=== PATIENT | male | born 1990 | race Caucasian/White ===

== ENCOUNTER 2018-10-13 14:39 | Inpatient (IN) ==
[2018-10-13] MEDS ORDERED: SODIUM CHLORIDE 0.9% 1000ML 1,000 ML IV ONE ×3 (15:06→17:54)
[2018-10-13 15:32] LABS: Partial Thromboplastin Ratio 1.2; Partial Thromboplastin Time 32.5 Seconds (21.0-31.0); Prothrombin Time 9.9 Seconds (9.0-12.0)
[2018-10-13 15:35] LABS: Alanine Aminotransferase 26 U/L (12-78); Albumin Level 4.3 gm/dl (3.4-5.0); Alkaline Phosphatase 176 U/L (45-117); Aspartate Aminotransferase 11 U/L (15-37); BUN Creatinine Ratio 11.6 (10-20); Bilirubin,Total 0.5 mg/dl (0.2-1); Blood Urea Nitrogen 16 mg/dl (7-18); Chloride 100 mmol/L (98-107); Creatinine Clr Calc Pharmacy 77.3 ml/min; Est GFR (African American) 79.1; Est GFR (Non-African American) 68.3; Magnesium 2.6 mg/dl (1.8-2.4); NT Pro B Type Natriuretic Pept 96 pg/ml (0-450); Potassium 4.5 mmol/L (3.5-5.1); Sodium 134 mmol/L (136-145); Total Protein 8.7 gm/dl (6.4-8.2); Troponin I < 0.015 ng/ml (0-0.045)
--- NOTE | 2018-10-13 15:37 | XRay Report ---
XR chest 1V portable HISTORY: 27 years-old Male cough acute cough. COMPARISON: None available TECHNIQUE: Portable AP view of the chest FINDINGS: Cardiac mediastinal and hilar silhouettes are within normal limits. There is no pneumothorax, pleural effusion, focal airspace consolidation or overt pulmonary edema. Bones of the chest appear grossly i ntact. IMPRESSION: No acute process. The above report was generated using voice recognition software. It may contain grammatical, syntax o r spelling errors. Electronically signed by: Anton Joe M.D. 10/13/2018 3:36 PM
[2018-10-13] MEDS ORDERED: DKA GOAL RANGE 150-250 mg/dl ONE ×2 (15:40→19:11)
[2018-10-13] MEDS ORDERED: SEVERE STRESS LEVEL ONE (15:40)
[2018-10-13 15:43] LABS: Glucose 432 mg/dl (70-99)
[2018-10-13] MEDS ORDERED: INSULIN REGULAR 250 UNITS in SODIUM CHLORIDE 0.9% 247.5 ML IV SCH ×2 (15:45→19:11)
[2018-10-13 15:46] LABS: Base Excess VBG -28.5 mEq/L; Oxygen Saturation VBG 80.2 %; pH VBG 6.88 (7.36-7.41)
[2018-10-13 15:50] LABS: Hematocrit (blood only) 49.4 % (42-52); Hemoglobin 17.5 g/dL (14.0-18.0); Mean Corpuscular Hgb Conc 35.4 g/dL (32-36); Mean Corpuscular Volume 88.2 fL (80-100); Platelet Count 369 K/uL (130-400); RDW Coefficient of Variation 12.6 % (11.5-14.5); RDW Standard Deviation 40.3 fL (36.4-46.3); White Blood Count 20.93 K/uL (4.8-10.8)
[2018-10-13 15:52] LABS: Basophils # (auto) 0.07 K/uL (0-0.2); Basophils % (auto) 0.3 %; Echinocytes 1+; Eosinophils # (auto) 0.02 K/uL (0-0.5); Eosinophils % (auto) 0.1 %; Immature Granulocytes # (auto) 0.67 K/uL (0.00-0.02); Immature Granulocytes % (auto) 3.2 %; Lymphocytes # (auto) 2.34 K/uL (1.2-3.4); Lymphocytes % (auto) 11.2 %; Monocytes # (auto) 2.36 K/uL (0.11-0.59); Monocytes % (auto) 11.3 %; Neutrophils # (auto) 15.47 K/uL (1.4-6.5); Neutrophils % (auto) 73.9 %; Platelet Estimate Normal (Normal); Toxic Vacuolation 1+
[2018-10-13] MEDS ORDERED: PIPERACILLIN/TAZOBACTAM 4.5 GM/120 ML BAG IV ONE (15:59)
[2018-10-13] MEDS ORDERED: PIPERACILL/TAZOBAC CONSULT ACTIVE PRN (15:59)
--- NOTE | 2018-10-13 16:05 | Emergency Department Note ---
History of Present Illness General Chief Complaint: Shortness of Breath/Dyspnea Stated Complaint: SHORTNESS OF BREATH Source: patient Mode of arrival: ambulatory Limitations: no limitations History of Present Illness Provider Complaint: shortness of breath Onset (ago): day(s) (1) Severity: severe Consistency/Duration: + constant Maximum Pain Intensity: 7 Current Pain Intensity: 7 Relieved By: + nothing Exacerbated By: + nothing Context: + recent illness (cough/congestion since last ) Associated symptoms: + cough and + nausea/vomiting Treatment prior to arrival: none This 27-year-old male patient presents emergency department today, ambulatory, accompanied by female. He is complaining of "not feeling good". The patient states last evening he was vomiting. He states he developed shortness of breath with worsening symptoms with deep breathing yesterday. He states since last , 5 days ago, he has been experiencing cough and congestion. He denies any fever. He denies any abdominal pain, chest pain, wheezing, or sore throat. He denies any headache, dizziness, numbness, tingling, or urinary symptoms. Patient states up until yesterday with nausea vomiting his appetite has been normally. He states he has been feeling overly thirsty, but denies any polyphagia or urinary frequency. Patient denies any drug or marijuana use. He denies any coughing up blood, hematemesis, or bowel disturbances. Home Medications Home Medications Medication Instructions Recorded Confirmed Type No Known Home Medications 10/13/18 10/13/18 History Allergies Allergy/AdvReac Type Severity Reaction Status Date / Time No Known Allergies Allergy Verified 10/13/18 15:24 Past Med/Surg History Medical History No pertinent past medical history Family History Grandfather Diabetes Social History Preferred Language: Danish Communication Ability: Effective Railroad Repairer Required: No Beliefs That Will Affect Care: None Current Living Situation: Significant Other Current Living Situation Comment: with Bella Gross, s/o current occupational status: student current occupation: grad student at [employer] Other Information That Helps Us Care for You: No Feels Safe at Home: Yes Safety Concerns: Feels Safe At This Time Smoking Status: Never smoker Do You Dip or Chew Tobacco: No Hx Alcohol Use: No Hx Substance Use: No Review of Systems A total of 10 systems reviewed and were otherwise negative Physical Exam Vital Signs: Vital Signs - 24 hr 10/13/18 14:46 10/13/18 14:55 10/13/18 14:56 Temperature Source Oral Sepsis Recent Feve r Within 48 Hours Yes Sepsis New/Unexpla ined Change in Men nora Status No Sepsis Action Take n by Nursing No Action Required Pulse Rate 115 H Pulse Rate [Apical ] Pulse Rate from Sp O2 Sensor Respiratory Rate 20 Respiratory Effort / Characteristics Labored Non-Labored Sponta neous Respiratory Depth Deep Normal Respiratory Patter n Regular Blood Pressure 151/90 H Blood Pressure [Le ft Arm] Blood Pressure Nayla n 110 Blood Pressure Nayla n [Left Arm] Pulse Oximetry 100 Oxygen Delivery Me thod Room Air Room Air Room Air 10/13/18 15:17 10/13/18 15:31 10/13/18 15:43 Temperature Source Axillary Sepsis Recent Feve r Within 48 Hours Sepsis New/Unexpla ined Change in Men nora Status Sepsis Action Take n by Nursing Pulse Rate 115 H 116 H Pulse Rate [Apical ] 110 H Pulse Rate from Sp O2 Sensor 114 H 115 H Respiratory Rate 21 22 22 Respiratory Effort / Characteristics Respiratory Depth Respiratory Patter n Blood Pressure 164/97 H Blood Pressure [Le ft Arm] 170/97 H Blood Pressure Nayla n 119 Blood Pressure Nayla n [Left Arm] 121 Pulse Oximetry 100 100 100 Oxygen Delivery Me thod Room Air 10/13/18 16:00 10/13/18 16:30 10/13/18 16:31 Temperature Source Sepsis Recent Feve r Within 48 Hours Sepsis New/Unexpla ined Change in Men nora Status Sepsis Action Take n by Nursing Pulse Rate 116 H 119 H 117 H Pulse Rate [Apical ] Pulse Rate from Sp O2 Sensor 116 H 119 H 117 H Respiratory Rate 23 16 20 Respiratory Effort / Characteristics Respiratory Depth Respiratory Patter n Blood Pressure 157/100 H 177/93 H Blood Pressure [Le ft Arm] Blood Pressure Nayla n 119 121 Blood Pressure Nayla n [Left Arm] Pulse Oximetry 100 98 100 Oxygen Delivery Me thod 10/13/18 17:00 10/13/18 17:30 10/13/18 17:32 Temperature Source Sepsis Recent Feve r Within 48 Hours Sepsis New/Unexpla ined Change in Men nora Status Sepsis Action Take n by Nursing Pulse Rate 114 H 116 H Pulse Rate [Apical ] Pulse Rate from Sp O2 Sensor 115 H 116 H Respiratory Rate 22 21 Respiratory Effort / Characteristics Spontaneous Labore d Short of Breath Respiratory Depth Respiratory Patter n Kussmaul Tachypnea Blood Pressure 151/95 H 154/101 H Blood Pressure [Le ft Arm] Blood Pressure Nayla n 113 118 Blood Pressure Nayla n [Left Arm] Pulse Oximetry 100 100 Oxygen Delivery Me thod Room Air 10/13/18 18:03 10/13/18 18:30 Temperature Source Sepsis Recent Feve r Within 48 Hours Sepsis New/Unexpla ined Change in Men nora Status Sepsis Action Take n by Nursing Pulse Rate 120 H 120 H Pulse Rate [Apical ] Pulse Rate from Sp O2 Sensor 119 H 120 H Respiratory Rate 21 20 Respiratory Effort / Characteristics Respiratory Depth Respiratory Patter n Blood Pressure Blood Pressure [Le ft Arm] Blood Pressure Nayla n Blood Pressure Nayla n [Left Arm] Pulse Oximetry 100 100 Oxygen Delivery Me thod Physical Exam: VITALS: Vitals are noted on the nurse's note and reviewed by myself. Tachycardic and hypertensive. GENERAL: This is a 27-year-old white male, ill-appearing, tachypneic with obvious difficulty breathing, appearing uncomfortable, nondiaphoretic, well- developed well-nourished. SKIN: The skin was without rashes, erythema, edema, or bruising. There is no tenting of the skin. Capillary reflex less than 2 seconds. HEAD: Normocephalic atraumatic. EARS: External auditory canals clear, tympanic membranes pearly [place] without er ythema or effusion bilaterally. EYES: Pupils equal round and reactive to light and accommodation. Conjunctivae without injection, sclerae without icterus. Extraocular movements intact. NOSE: Patent, turbinates without inflammation or discharge. No sinus tenderness. MOUTH: Mucous membranes moist. Tonsils are not enlarged. Pharynx without erythema or exudate. Uvula midline. Airway patent. Tongue does not deviate. NECK: Supple without nuchal rigidity. No lymphadenopathy. No thyromegaly. Cervical spine is nontender. No JVD. HEART: Regular rate and rhythm without murmurs gallops or rubs. LUNGS: Clear to auscultation bilaterally without wheezes, rales or rhonchi. No dullness to percussion. + accessory muscle use. ABDOMEN: Positive bowel sounds x 4. Normal tympanic percussion. Soft, nontender, without masses or organomegaly. Frias sign negative. No guarding or rebound tenderness. MUSCULOSKELETAL: No muscle atrophy, erythema, or edema noted. Full range of motion without joint tenderness in all extremities. No tenderness to palpation. Normal gait. Strength 5/5 throughout. NEURO: Patient was alert and oriented to person place and time. Normal sensation to light and sharp touch. Deep tendon reflexes 2+ throughout. No focal neurological deficits. Course The patient was seen and evaluated as above. IV access obtained, labs drawn. Patient given 2 L IV fluids. Imaging performed and reviewed by myself and radiologist as above. Labs reviewed by myself. I consulted with the ED pharmacist. Insulin drip initiated. I discussed the findings with the patient at bedside. Discussed the case with the [facility] physician, Dr. Gray regarding admission. I discussed the case with my attending. Patient given Zosyn IV. Please see hospitalist dictation regarding ongoing management care of this patient. Administered Medications Insulin Human Regular 250 (units/ Sodium Chloride) 250 mls @ 9.7 mls/hr IV .Q24H JOAN; Protocol Stop: 11/12/18 15:44 Last Titration: 10/13/18 18:16 Dose: 9.7 units/hr, 9.7 mls/hr Documented by: [id number] Cosigned by: [id number] Titration: 10/13/18 17:15 Dose: 9.7 units/hr, 9.7 mls/hr Documented by: [id number] Cosigned by: [id number] Admin: 10/13/18 16:15 Dose: 6.9 units/hr, 6.9 mls/hr Documented by: [id number] Cosigned by: [id number] Discontinued Medications Sodium Chloride (Nss 1000ml) 1,000 mls @ 999 mls/hr IV .Q1H1M ONE Stop: 10/13/18 16:06 Last Infusion: 10/13/18 17:05 Dose: 0 mls/hr Documented by: [id number] Admin: 10/13/18 15:56 Dose: 999 mls/hr Documented by: [id number] Sodium Chloride (Nss 1000ml) 1,000 mls @ 999 mls/hr IV .Q1H1M ONE Stop: 10/13/18 16:24 Last Infusion: 10/13/18 17:05 Dose: 0 mls/hr Documented by: [id number] Admin: 10/13/18 15:56 Dose: 999 mls/hr Documented by: [id number] Piperacillin Sod/Tazobactam Sod (Zosyn) 4.5 gm in 120 mls @ 240 mls/hr IV NOW ONE Stop: 10/13/18 16:28 Last Infusion: 10/13/18 17:05 Dose: 0 mls/hr Documented by: [id number] Admin: 10/13/18 16:12 Dose: 240 mls/hr Documented by: [id number] Sodium Chloride (Nss 1000ml) 1,000 mls @ 999 mls/hr IV .Q1H1M ONE Stop: 10/13/18 18:54 Last Infusion: 10/13/18 18:56 Dose: 0 mls/hr Documented by: [id number] Admin: 10/13/18 17:55 Dose: 999 mls/hr Documented by: [id number] Miscellaneous (Insulin Protocol Dka Goal Range) 1 ea N/A ONE ONE Stop: 10/13/18 15:41 Last Admin: 10/13/18 16:32 Dose: Not Given Documented by: [id number] Miscellaneous (Insulin Protocol Severe Stress) 1 ea N/A ONE ONE Stop: 10/13/18 15:41 Last Admin: 10/13/18 16:32 Dose: Not Given Documented by: [id number] Medical Decision Making Differential Diagnosis + acute exacerbation of chronic obstructive airways disease, + congestive heart failure, + community acquired pneumonia, + asthma with exacerbation, + pulmonary embolism, + COPD, + bronchitis, + pneumothorax, + pneumonia, + pleural effusion, + CHF, + ACS and + aspiration DKA, metabolic abnormality, endocrine abnormality, musculoskeletal, infections, gastrointestinal, as well as others were entertained. Home Medications Current Medication List: was personally reviewed by me Laboratory Data Attestation: I reviewed the patient's lab results. Leukocytosis of 21,000. Coags normal. D-dimer elevated at 640. Potassium normal at 4.5. Lactic acid 3.5. Glucose 432. Creatinine elevated 1.41. Troponin negative. BNP negative. Lipase 100. Magnesium slightly elevated at 2.6. Anion gap elevated at 30. ABG pH 6.88. PCO2 23. Beta hydroxybutyric acid 112. Result diagrams: 10/13/18 15:01 10/13/18 15:01 Lab Results 10/13/18 10/13/18 10/13/18 Range/Units 15:01 15:01 15:01 WBC 20.93 H (4.8-10.8) K/uL RBC 5.60 (4.7-6.1) M/uL Hgb 17.5 (14.0-18.0) g/dL Hct 49.4 (42-52) % MCV 88.2 (80-100) fL MCH 31.3 (25-34) pg MCHC 35.4 (32-36) g/dL RDW Std Deviation 40.3 (36.4-46.3) fL RDW Coeff of Deana 12.6 (11.5-14.5) % Plt Count 369 (130-400) K/uL MPV 11.0 H (7.4-10.4) fL Immature Gran % (Auto) 3.2 % Neut % (Auto) 73.9 % Lymph % (Auto) 11.2 % [place] % (Auto) 11.3 % Eos % (Auto) 0.1 % Baso % (Auto) 0.3 % Immature Gran # (Auto) 0.67 H (0.00-0.02) K/uL Neut # (Auto) 15.47 H (1.4-6.5) K/uL Lymph # (Auto) 2.34 (1.2-3.4) K/uL [place] # (Auto) 2.36 H (0.11-0.59) K/uL Eos # (Auto) 0.02 (0-0.5) K/uL Baso # (Auto) 0.07 (0-0.2) K/uL Toxic Vacuolation 1+ Platelet Estimate Normal (Normal) Echinocytes 1+ PT 9.9 (9.0-12.0) Seconds INR 1.0 (0.9-1.1) APTT 32.5 H (21.0-31.0) Seconds PTT Ratio 1.2 D-Dimer Cancelled 640 H* VBG pH (7.36-7.41) VBG pCO2 (38-50) mmHg VBG pO2 mmHg VBG HCO3 mmol/L VBG O2 Saturation % VBG Base Excess mEq/L Barometric Pressure mm/Hg Sodium (136-145) mmol/L Potassium (3.5-5.1) mmol/L Chloride (98-107) mmol/L Carbon Dioxide (21-32) mmol/L Anion Gap (3-11) BUN (7-18) mg/dl Creatinine (0.6-1.4) mg/dl Est Cr Clr Drug Dosing ml/min Est GFR ( Amer) Est GFR (Non-Af Amer) BUN/Creatinine Ratio (10-20) Glucose (70-99) mg/dl POC Glucose (70-99) Lactate (0.4-2.0) mmol/L Calcium (8.5-10.1) mg/dl Magnesium (1.8-2.4) mg/dl Total Bilirubin (0.2-1) mg/dl AST (15-37) U/L ALT (12-78) U/L Alkaline Phosphatase (45-117) U/L Troponin I (0-0.045) ng/ml NT-Pro-B Natriuret Pep (0-450) pg/ml Total Protein (6.4-8.2) gm/dl Albumin (3.4-5.0) gm/dl Globulin (2.5-4.0) gm/dl Albumin/Globulin Ratio (0.9-2) Lipase (73-393) U/L Beta-Hydroxybutyric Acd (0.2-2.81) mg/dl Urine Color Urine Appearance (Clear) Urine pH (4.5-7.5) Ur Specific [place] (1.000-1.030) Urine Protein (Negative) Urine Glucose (UA) (Negative) Urine Ketones (Negative) Urine Blood (Negative) Urine Nitrite (Negative) Urine Bilirubin (Negative) Urine Urobilinogen (Negative) Ur Leukocyte Esterase (Negative) Urine WBC (Auto) (0-5) /hpf Urine RBC (Auto) (0-4) /hpf U Hyaline Cast (Auto) (0-5) /lpf U Epithel Cells (Auto) (0-5) /lpf Urine Bacteria (Auto) (Negative) Granular Casts (0) /lpf 10/13/18 10/13/18 10/13/18 Range/Units 15:01 15:11 15:11 WBC (4.8-10.8) K/uL RBC (4.7-6.1) M/uL Hgb (14.0-18.0) g/dL Hct (42-52) % MCV (80-100) fL MCH (25-34) pg MCHC (32-36) g/dL RDW Std Deviation (36.4-46.3) fL RDW Coeff of Deana (11.5-14.5) % Plt Count (130-400) K/uL MPV (7.4-10.4) fL Immature Gran % (Auto) % Neut % (Auto) % Lymph % (Auto) % [place] % (Auto) % Eos % (Auto) % Baso % (Auto) % Immature Gran # (Auto) (0.00-0.02) K/uL Neut # (Auto) (1.4-6.5) K/uL Lymph # (Auto) (1.2-3.4) K/uL [place] # (Auto) (0.11-0.59) K/uL Eos # (Auto) (0-0.5) K/uL Baso # (Auto) (0-0.2) K/uL Toxic Vacuolation Platelet Estimate (Normal) Echinocytes PT (9.0-12.0) Seconds INR (0.9-1.1) APTT (21.0-31.0) Seconds PTT Ratio D-Dimer VBG pH (7.36-7.41) VBG pCO2 (38-50) mmHg VBG pO2 mmHg VBG HCO3 mmol/L VBG O2 Saturation % VBG Base Excess mEq/L Barometric Pressure mm/Hg Sodium 134 L (136-145) mmol/L Potassium 4.5 (3.5-5.1) mmol/L Chloride 100 (98-107) mmol/L Carbon Dioxide 4 L* (21-32) mmol/L Anion Gap 30.0 H (3-11) BUN 16 (7-18) mg/dl Creatinine 1.41 H (0.6-1.4) mg/dl Est Cr Clr Drug Dosing 77.3 ml/min Est GFR ( Amer) 79.1 Est GFR (Non-Af Amer) 68.3 BUN/Creatinine Ratio 11.6 (10-20) Glucose 432 H* (70-99) mg/dl POC Glucose (70-99) Lactate 3.5 H* (0.4-2.0) mmol/L Calcium 9.0 (8.5-10.1) mg/dl Magnesium 2.6 H (1.8-2.4) mg/dl Total Bilirubin 0.5 (0.2-1) mg/dl AST 11 L (15-37) U/L ALT 26 (12-78) U/L Alkaline Phosphatase 176 H (45-117) U/L Troponin I < 0.015 (0-0.045) ng/ml NT-Pro-B Natriuret Pep 96 (0-450) pg/ml Total Protein 8.7 H (6.4-8.2) gm/dl Albumin 4.3 (3.4-5.0) gm/dl Globulin 4.4 H (2.5-4.0) gm/dl Albumin/Globulin Ratio 1.0 (0.9-2) Lipase 100 (73-393) U/L Beta-Hydroxybutyric Acd 112.28 H (0.2-2.81) mg/dl Urine Color Yellow Urine Appearance Clear (Clear) Urine pH 5.0 (4.5-7.5) Ur Specific [place] 1.027 (1.000-1.030) Urine Protein 2+ H (Negative) Urine Glucose (UA) 3+ H (Negative) Urine Ketones 4+ H (Negative) Urine Blood 1+ H (Negative) Urine Nitrite Negative (Negative) Urine Bilirubin Negative (Negative) Urine Urobilinogen Negative (Negative) Ur Leukocyte Esterase Negative (Negative) Urine WBC (Auto) 1-5 (0-5) /hpf Urine RBC (Auto) 0-4 (0-4) /hpf U Hyaline Cast (Auto) 10-30 H (0-5) /lpf U Epithel Cells (Auto) >30 H (0-5) /lpf Urine Bacteria (Auto) Negative (Negative) Granular Casts 1-5 H (0) /lpf 10/13/18 10/13/18 Range/Units 15:20 15:29 WBC (4.8-10.8) K/uL RBC (4.7-6.1) M/uL Hgb (14.0-18.0) g/dL Hct (42-52) % MCV (80-100) fL MCH (25-34) pg MCHC (32-36) g/dL RDW Std Deviation (36.4-46.3) fL RDW Coeff of Deana (11.5-14.5) % Plt Count (130-400) K/uL MPV (7.4-10.4) fL Immature Gran % (Auto) % Neut % (Auto) % Lymph % (Auto) % [place] % (Auto) % Eos % (Auto) % Baso % (Auto) % Immature Gran # (Auto) (0.00-0.02) K/uL Neut # (Auto) (1.4-6.5) K/uL Lymph # (Auto) (1.2-3.4) K/uL [place] # (Auto) (0.11-0.59) K/uL Eos # (Auto) (0-0.5) K/uL Baso # (Auto) (0-0.2) K/uL Toxic Vacuolation Platelet Estimate (Normal) Echinocytes PT (9.0-12.0) Seconds INR (0.9-1.1) APTT (21.0-31.0) Seconds PTT Ratio D-Dimer VBG pH 6.88 L (7.36-7.41) VBG pCO2 23 L (38-50) mmHg VBG pO2 49 mmHg VBG HCO3 4 mmol/L VBG O2 Saturation 80.2 % VBG Base Excess -28.5 mEq/L Barometric Pressure 734.1 mm/Hg Sodium (136-145) mmol/L Potassium (3.5-5.1) mmol/L Chloride (98-107) mmol/L Carbon Dioxide (21-32) mmol/L Anion Gap (3-11) BUN (7-18) mg/dl Creatinine (0.6-1.4) mg/dl Est Cr Clr Drug Dosing ml/min Est GFR ( Amer) Est GFR (Non-Af Amer) BUN/Creatinine Ratio (10-20) Glucose (70-99) mg/dl POC Glucose 430 H* (70-99) Lactate (0.4-2.0) mmol/L Calcium (8.5-10.1) mg/dl Magnesium (1.8-2.4) mg/dl Total Bilirubin (0.2-1) mg/dl AST (15-37) U/L ALT (12-78) U/L Alkaline Phosphatase (45-117) U/L Troponin I (0-0.045) ng/ml NT-Pro-B Natriuret Pep (0-450) pg/ml Total Protein (6.4-8.2) gm/dl Albumin (3.4-5.0) gm/dl Globulin (2.5-4.0) gm/dl Albumin/Globulin Ratio (0.9-2) Lipase (73-393) U/L Beta-Hydroxybutyric Acd (0.2-2.81) mg/dl Urine Color Urine Appearance (Clear) Urine pH (4.5-7.5) Ur Specific [place] (1.000-1.030) Urine Protein (Negative) Urine Glucose (UA) (Negative) Urine Ketones (Negative) Urine Blood (Negative) Urine Nitrite (Negative) Urine Bilirubin (Negative) Urine Urobilinogen (Negative) Ur Leukocyte Esterase (Negative) Urine WBC (Auto) (0-5) /hpf Urine RBC (Auto) (0-4) /hpf U Hyaline Cast (Auto) (0-5) /lpf U Epithel Cells (Auto) (0-5) /lpf Urine Bacteria (Auto) (Negative) Granular Casts (0) /lpf Imaging Data Radiologist's Impression: XR chest 1V portable HISTORY: 27 years-old Male cough acute cough. COMPARISON: None available TECHNIQUE: Portable AP view of the chest FINDINGS: Cardiac mediastinal and hilar silhouettes are within normal limits. There is no pneumothorax, pleural effusion, focal airspace consolidation or overt pulmonary edema. Bones of the chest appear grossly intact. IMPRESSION: No acute process. The above report was generated using voice recognition software. It may contain grammatical, syntax or spelling errors. Electronically signed by: Anton Joe M.D. 10/13/2018 3:36 PM ECG Data Attestation: I personally reviewed and interpreted this ECG as follows: Prior ECG tracings: not available for review Interpretation: Sinus tachycardia with ventricular rate of 111 bpm. No acute ischemic changes. No T wave inversion. Blood Pressure Blood Pressure Findings: Elevated blood pressure Blood Pressure Disposition: further management by hospitalist ANTONIO Farfan This 27-year-old male patient presents emergency department today complaining of difficulty breathing. On examination, he has Kussmaul respirations and symptoms are concerning for DKA. The patient does not have any known past medical history, denies any history of diabetes. Work-up here does show elevated blood glucose of 432, elevated lactic acid of 3.5, anion gap of 30 and CO2 of 4. Patient was immediately given 2 L of IV fluids, and upon notification of elev ated blood glucose and normal potassium, insulin drip initiated. I consulted with the hospitalist, who did see and evaluate the patient. The patient will be admitted for management of the DKA and new diabetic education. The patient was given Zosyn due to c/o cough/URI symptoms and leukocytosis. Please see hospitalist dictation regarding ongoing management care of the patient. The chart was completed utilizing [email or web address] Speech voice recognition software. Grammatical errors, random word insertions, pronoun errors, and incomplete sentences are an occasional consequence of this system due to software limitations, ambient noise, and hardware issues. Any formal questions or concerns about the content, text, or information contained within the body of this dictation should be directly addressed to the provider for clarification. Impression & Plan DKA (diabetic ketoacidoses) Discharge Plan Visit Data Chief Complaint: Shortness of Breath/Dyspnea Stated Complaint: SHORTNESS OF BREATH ED Provider: Raheel Mott ED Midlevel Provider: Starr Bobby Discharge Instructions Interventions: ED Discharge Assessment Last Done: 10/13/18 18:54 Prescriptions Prescriptions: No Action No Known Home Medications RF: 0
[2018-10-13 16:15] LABS: Beta-Hydroxybutyrate 112.28 mg/dl (0.2-2.81)
--- NOTE | 2018-10-13 16:42 | History & Physical Report ---
Date of Service October 13, 2018 Assessment & Plan (1) DKA (diabetic ketoacidoses): 27 y/o M with no significant PMH presents with complaints of SOB and vomiting found to be in DKA DKA -insulin gtt per protocol -s/p 3L NSS in ED -NSS + 40 meq KCl @ 250 - D5 + NSS + 40 meq KCl @ 250 once BSG reach goal as below -BSG q1h. DKA goal 150-250 -monitor labs (BMP, Mg, Phos, pH VBG) q4h -monitor AG, once closed will switch to SQ Insulin -diabetic education consult appreciated -A1C pending -tachypnea likely 2/2 to resp compensation to acidemia QTc prolongation -516 in ED -repeat EKG in AM Leukocytosis -low suspicion to infectious etiology -white count 2/2 demargination from vomiting. Will cont trend -dc'd zosyn -will cont to monitor for s/s infection. CBC tomorrow FEN/GI: DM Diet DVT Prophylaxis: Low Risk Full Code Dispo: Med Surg w/Tele History of Present Illness Chief Complaint: SOB/Dyspnea Primary Care Provider: NO PCP 27 y/o with no significant PMH presents to [facility] with complaints of SOB. States that SOB and vomiting started last night. Attributed it to battling cold-like symptoms for about one week prior (since last experiencing cough and congestion). However, breathing difficulties and vomiting (~15 episodes) continued into AM, and pt went to who then referred pt to ED. States has never had any previous such occurrence. Denies polyuria, polydipsia, polyphagia, abd pain, CP, palpitations, GRANT, dizziness, numbness, tingling, urinary symptoms, hematemesis, F/N/V/D at present. Admits to feeling fatigued and increased RR. Also admits 5 lb wt loss since last week. In the ER, CXR normal, EKG showed sinus tachycardia. Significant labs: WBC 20.93, AG 30, Glu 432, ABG pH 6.88, Beta-Hydroxybutyric Acid 112, LA 3.5, D- dimer 640, Mg 2.6. UA: 2+ Protein, 3+ Glucose, 4+ Ketones, 1+ Blood Given 2L IVF, Insulin gtt, IV Zosyn. Fam Hx: DM in grandfather and maternal/paternal uncles Surg Hx: None Social: Denies tobacco, alcohol, or other drug use Allergies Allergy/AdvReac Type Severity Reaction Status Date / Time No Known Allergies Allergy Verified 10/13/18 15:24 Home Medications Home Medications Medication Instructions Recorded Confirmed Type No Known Home Medications 10/13/18 10/13/18 History Past Med/Surg History Medical History No pertinent past medical history Family History Grandfather Diabetes Social History Preferred Language: Romanian Communication Ability: Effective Employee Counselor Required: No Beliefs That Will Affect Care: None Current Living Situation: Significant Other Current Living Situation Comment: with Bella Gross, s/o current occupational status: student current occupation: grad student at [email or web address] Other Information That Helps Us Care for You: No Feels Safe at Home: Yes Safety Concerns: Feels Safe At This Time Smoking Status: Never smoker Do You Dip or Chew Tobacco: No Hx Alcohol Use: No Hx Substance Use: No Review of Systems Review of Systems: All systems reviewed & are unremarkable except as noted in HPI & below Physical Exam Constitutional: WD/WN, vitals as above Eyes: PERRL, conjunctivae normal, anicteric sclerae ENMT: dry MM Respiratory: Auscultation: lungs clear to auscultation bilaterally Mild tachypnea Cardiovascular: RRR, no murmur, no edema Gastrointestinal (Abdomen): normal bowel sounds, soft, nontender, no hepatosplenomegaly Skin: no rashes, warm and dry Psychiatric: A+Ox3, euthymic affect Results & Data Vital Signs (Past 12 Hours) Vital Signs Pulse Pulse Resp BP BP Pulse Ox 10/13/18 16:30 119 H 16 98 10/13/18 16:00 116 H 23 157/100 H 100 10/13/18 15:43 116 H 22 100 10/13/18 15:31 115 H 22 164/97 H 100 10/13/18 15:17 110 H 21 170/97 H 100 10/13/18 14:46 115 H 20 151/90 H 100 Laboratory Results Laboratory Results - last 24 hr 10/13/18 10/13/18 10/13/18 15:01 15:01 15:01 WBC 20.93 H RBC 5.60 Hgb 17.5 Hct 49.4 MCV 88.2 MCH 31.3 MCHC 35.4 RDW Std Deviation 40.3 RDW Coeff of Deana 12.6 Plt Count 369 MPV 11.0 H Immature Gran % (Auto) 3.2 Neut % (Auto) 73.9 Lymph % (Auto) 11.2 Vilas % (Auto) 11.3 Eos % (Auto) 0.1 Baso % (Auto) 0.3 Immature Gran # (Auto) 0.67 H Neut # (Auto) 15.47 H Lymph # (Auto) 2.34 Vilas # (Auto) 2.36 H Eos # (Auto) 0.02 Baso # (Auto) 0.07 Toxic Vacuolation 1+ Platelet Estimate Normal Echinocytes 1+ PT 9.9 INR 1.0 APTT 32.5 H PTT Ratio 1.2 D-Dimer Cancelled 640 H* VBG pH VBG pCO2 VBG pO2 VBG HCO3 VBG O2 Saturation VBG Base Excess Barometric Pressure Sodium Potassium Chloride Carbon Dioxide Anion Gap BUN Creatinine Est Cr Clr Drug Dosing Est GFR ( Amer) Est GFR (Non-Af Amer) BUN/Creatinine Ratio Glucose POC Glucose Lactate Calcium Magnesium Total Bilirubin AST ALT Alkaline Phosphatase Troponin I NT-Pro-B Natriuret Pep Total Protein Albumin Globulin Albumin/Globulin Ratio Lipase Beta-Hydroxybutyric Acd 10/13/18 10/13/18 10/13/18 15:01 15:11 15:20 WBC RBC Hgb Hct MCV MCH MCHC RDW Std Deviation RDW Coeff of Deana Plt Count MPV Immature Gran % (Auto) Neut % (Auto) Lymph % (Auto) Vilas % (Auto) Eos % (Auto) Baso % (Auto) Immature Gran # (Auto) Neut # (Auto) Lymph # (Auto) Vilas # (Auto) Eos # (Auto) Baso # (Auto) Toxic Vacuolation Platelet Estimate Echinocytes PT INR APTT PTT Ratio D-Dimer VBG pH VBG pCO2 VBG pO2 VBG HCO3 VBG O2 Saturation VBG Base Excess Barometric Pressure Sodium 134 L Potassium 4.5 Chloride 100 Carbon Dioxide Anion Gap 30.0 H BUN 16 Creatinine 1.41 H Est Cr Clr Drug Dosing 77.3 Est GFR ( Amer) 79.1 Est GFR (Non-Af Amer) 68.3 BUN/Creatinine Ratio 11.6 Glucose 432 H* POC Glucose 430 H* Lactate 3.5 H* Calcium 9.0 Magnesium 2.6 H Total Bilirubin 0.5 AST 11 L ALT 26 Alkaline Phosphatase 176 H Troponin I < 0.015 NT-Pro-B Natriuret Pep 96 Total Protein 8.7 H Albumin 4.3 Globulin Pending Albumin/Globulin Ratio 1.0 Lipase 100 Beta-Hydroxybutyric Acd 112.28 H 10/13/18 15:29 WBC RBC Hgb Hct MCV MCH MCHC RDW Std Deviation RDW Coeff of Deana Plt Count MPV Immature Gran % (Auto) Neut % (Auto) Lymph % (Auto) Vilas % (Auto) Eos % (Auto) Baso % (Auto) Immature Gran # (Auto) Neut # (Auto) Lymph # (Auto) Vilas # (Auto) Eos # (Auto) Baso # (Auto) Toxic Vacuolation Platelet Estimate Echinocytes PT INR APTT PTT Ratio D-Dimer VBG pH 6.88 L VBG pCO2 23 L VBG pO2 49 VBG HCO3 4 VBG O2 Saturation 80.2 VBG Base Excess -28.5 Barometric Pressure 734.1 Sodium Potassium Chloride Carbon Dioxide Anion Gap BUN Creatinine Est Cr Clr Drug Dosing Est GFR ( Amer) Est GFR (Non-Af Amer) BUN/Creatinine Ratio Glucose POC Glucose Lactate Calcium Magnesium Total Bilirubin AST ALT Alkaline Phosphatase Troponin I NT-Pro-B Natriuret Pep Total Protein Albumin Globulin Albumin/Globulin Ratio Lipase Beta-Hydroxybutyric Acd Medications Administered Current Inpatient Medications Insulin Human Regular 250 (units/ Sodium Chloride) 250 mls @ 6.9 mls/hr IV .Q24H JOAN; Protocol Stop: 11/12/18 15:44 Last Admin: 10/13/18 16:15 Dose: 6.9 units/hr, 6.9 mls/hr Documented by: Insulin Aspart (Novolog Flexpen) 0 units SC [facility] Stop: 11/12/18 17:59 Miscellaneous Information (Consult) 1 ea N/A UD PRN PRN Reason: Consult Stop: 11/12/18 15:58 Code Status & VTE Plan Code Status FULL Supervising Physician Co-Signing Physician Notes I personally examined the patient and verified all gonzáles points of history and exam, discussed case, and agree with decision making with Dr Sheppard. Feeling ill for a while prior to admission, nausea vomiting tachypnea. No focal symptoms. 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 Otherwise HPI as above. Brother is present who is in undergrad, one other friend is present who is a master student. All questions answered to the best my ability. He is from the [facility]. Vitals noted, in general he is quite fatigued appearing somewhat tachypneic. No pain distress. HEENT normocephalic atraumatic mucous membranes quite dry in spite of about 2.5 L at the time that I see him. Cardio is regular tachycardia no rubs murmurs or gallops. Lungs are clear to auscultation bilaterally no rales rhonchi or wheeze with good effort. Abdomen is soft nondistended nontender no masses organomegaly. Extremities show no cyanosis clubbing or edema no calf tenderness. Skin shows no rashes no pallor or icterus. Neuro shows cranial nerves II through XII be grossly intact gross motor and sensory are intact. New onset type 1 diabetes with DKA/profound metabolic acidosis�it appears that he has new onset type 1 diabetes, there does not appear to be any inciting infection as far as the DKA, more just the insulin deficiency of being a new onset type I. He appears profoundly dry, given that the average type I and DKA is 3 to 5 L dehydrated on admission I would venture he is at least 5 L down. We will give him aggressive fluid support, insulin management, close and serial labs, and then once he is more stable we will work towards transitioning to subcu insulin. Leukocytosis�no other signs or symptoms of infection obviously present, this is likely demargination from his vomiting. Vomiting�likely from the metabolic derangements of his acidosis. Severe metabolic acidosis�due to above, fluid management aggressively. Elevated d-dimer�nonspecific, appears to be phase reactant, although he is tachycardic, this is better explained by his dehydration. He shows no signs or symptoms of DVT. He does not appear to have any overt risk factors for venous thromboembolic disease, and he is 100% on room air. Given all of this, right now the risk/benefit of a CT scan to look for PE is riskier with IV contrast impacting on his kidneys. Ventilation/perfusion scan could be entertained, but generally takes hours to get the nuclear tracer. At this point given that clinically a venous thrombi embolic disease is low probability, we will follow his clinical status into tomorrow, and if he shows any developing signs or symptoms of concern for venous thromboembolic disease, we can work-up further when a V/Q would be possible, or with better perfusion making IV contrast less risky. Elevated creatinine�likely due to his profound volume depletion. IV fluids. DVT prophylaxis�ambulation Resident Activity Tracking Resident Involvement: Resident Care Provided Care Provided: Adult [facility]
[2018-10-13 17:16] LABS: Carbon Dioxide 4 mmol/L (21-32)
[2018-10-13 17:17] LABS: Globulin 4.4 gm/dl (2.5-4.0)
[2018-10-13 17:18] LABS: Appearance Urine Clear (Clear); Bacteria Urine Automated Negative (Negative); Bilirubin Urine Negative (Negative); Blood Urine 1+ (Negative); Color Urine Yellow; Epithelial Cell Urine Auto >30 /lpf (0-5); Glucose Urine UA 3+ (Negative); Leukocyte Esterase Urine Negative (Negative); Nitrite Urine Negative (Negative); Protein Urine 2+ (Negative); RBC Urine Automated 0-4 /hpf (0-4); Specific Gravity Urine 1.027 (1.000-1.030); Urobilinogen Urine Negative (Negative)
[2018-10-13 17:23] LABS: Ketones Urine 4+ (Negative)
[2018-10-13] MEDS ORDERED: POTASSIUM CHLORIDE 40 MEQ in SODIUM CHLORIDE 0.9% 1000ML 1,000 ML IV SCH (18:15)
[2018-10-13] MEDS ORDERED: KCL IVF SCH (19:11)
[2018-10-13] MEDS ORDERED: ACETAMINOPHEN 325 MG TAB PO PRN (19:11)
[2018-10-13] MEDS ORDERED: INSULIN ASPART 100 UNITS/ML 3 ML PEN SC SCH (19:11)
[2018-10-13] MEDS ORDERED: MODERATE STRESS LEVEL ONE (19:11)
[2018-10-13] MEDS ORDERED: PENDING D5NS+40mEq KCL IVF SCH (19:11)
[2018-10-13] MEDS ORDERED: ALUMINUM/MAGNESIUM SUSP 30 ML UDC PO PRN (19:11)
[2018-10-13] MEDS ORDERED: INSULIN PROTOCOL GOAL RANGE ONE (19:11)
[2018-10-13] MEDS ORDERED: ONDANSETRON INJ 2 MG/ML 2 ML VIAL IV PRN (19:11)
[2018-10-13] MEDS ORDERED: MAGNESIUM HYDROXIDE SUSP 30 ML UDC PO PRN (19:11)
[2018-10-13] MEDS ORDERED: POLYETHYLENE (MIRALAX) 17 GM PACK PO PRN (19:11)
[2018-10-13] MEDS ORDERED: [UNRECOGNIZED DRUG - OTHER] SCH (19:11)
[2018-10-13] MEDS ORDERED: GLUCAGON FOR INJ 1 MG VIAL IM PRN (19:30)
[2018-10-13] MEDS ORDERED: DEXTROSE 50% 50 ML SYRINGE IV PRN (19:30)
[2018-10-13] MEDS ORDERED: CARBOHYDRATES FOR HYPOGLYCEMIA PO PRN (19:30)
[2018-10-13] MEDS ORDERED: GLUCOSE 10 TABS/TUBE PO PRN (19:30)
[2018-10-13] MEDS ORDERED: GLUCOSE 40% GEL 15 GM TUBE PO PRN (19:30)
--- NOTE | 2018-10-13 19:31 | History & Physical Report ---
Date of Service October 13, 2018 Assessment & Plan (1) DKA (diabetic ketoacidoses): (2) Type 1 diabetes: (3) Leukocytosis: (4) Metabolic acidosis: (5) Vomiting: (6) Elevated serum creatinine: History of Present Illness Primary Care Provider: NO PCP Please see separate documentation from the same date for actual clinical information. The EMR was changed to allow for in-EMR coding entry, and unfortunately residency documentation was on the older notes. This note was generated simply to allow entry of the proper codes, but the separate note/same date contains the actual clinical information. This should be a one-time issue, and I apologize for any confusion. Allergies Allergy/AdvReac Type Severity Reaction Status Date / Time No Known Allergies Allergy Verified 10/13/18 15:24 Home Medications Home Medications Medication Instructions Recorded Confirmed Type No Known Home Medications 10/13/18 10/13/18 History Past Med/Surg History Medical History No pertinent past medical history Family History Grandfather Diabetes Social History Preferred Language: Estonian Communication Ability: Effective Director Of [employer] Required: No Beliefs That Will Affect Care: None Current Living Situation: Significant Other Current Living Situation Comment: with Bella Gross, s/o current occupational status: student current occupation: grad student at [employer] Other Information That Helps Us Care for You: No Feels Safe at Home: Yes Safety Concerns: Feels Safe At This Time Smoking Status: Never smoker Do You Dip or Chew Tobacco: No Hx Alcohol Use: No Hx Substance Use: No Results & Data Vital Signs (Past 12 Hours) Vital Signs Pulse Pulse Resp BP BP Pulse Ox 10/13/18 18:30 120 H 20 100 10/13/18 18:03 120 H 21 100 10/13/18 17:30 116 H 21 154/101 H 100 10/13/18 17:00 114 H 22 151/95 H 100 10/13/18 16:31 117 H 20 177/93 H 100 10/13/18 16:30 119 H 16 98 10/13/18 16:00 116 H 23 157/100 H 100 10/13/18 15:43 116 H 22 100 10/13/18 15:31 115 H 22 164/97 H 100 10/13/18 15:17 110 H 21 170/97 H 100 10/13/18 14:46 115 H 20 151/90 H 100
[2018-10-13] MEDS: INSULIN ASPART 100 UNITS/ML 3 ML PEN SC SCH ×2 (19:44→21:30)
[2018-10-13 20:22] LABS: BUN Creatinine Ratio 12.6 (10-20); Calcium 8.2 mg/dl (8.5-10.1); Creatinine Clr Calc Pharmacy 93.2 ml/min; Est GFR (African American) 99.1; Est GFR (Non-African American) 85.5; Magnesium 2.2 mg/dl (1.8-2.4); Potassium 4.2 mmol/L (3.5-5.1)
[2018-10-13] MEDS: POTASSIUM CHLORIDE 40 MEQ in D5W AND NSS 1,000 ML IV SCH (21:00)
[2018-10-13 23:50] LABS: BUN Creatinine Ratio 11.9 (10-20); Calcium 8.5 mg/dl (8.5-10.1); Est GFR (African American) 100.2; Est GFR (Non-African American) 86.4; Phosphorus 1.2 mg/dl (2.5-4.9); Potassium 4.6 mmol/L (3.5-5.1)
[2018-10-13] MEDS ORDERED: POTASSIUM PHOS 3 MMOL/1 ML INFUSION IV STA (23:56)
[2018-10-14] MEDS ORDERED: POTASSIUM PHOSPHATE 30 MMOL in SODIUM CHLORIDE 0.9% 500 ML IV ONE ×3 (00:15→20:30)
[2018-10-14 00:55] LABS: Appearance Urine Cloudy (Clear); Bacteria Urine Automated Negative (Negative); Bilirubin Urine Negative (Negative); Blood Urine 1+ (Negative); Color Urine Yellow; Epithelial Cell Urine Auto >30 /lpf (0-5); Glucose Urine UA 3+ (Negative); Leukocyte Esterase Urine Negative (Negative); Nitrite Urine Negative (Negative); Protein Urine 1+ (Negative); RBC Urine Automated 0-4 /hpf (0-4); Specific Gravity Urine 1.021 (1.000-1.030); Urobilinogen Urine Negative (Negative)
[2018-10-14 01:05] LABS: Ketones Urine 4+ (Negative)
[2018-10-14] MEDS: POTASSIUM CHLORIDE 40 MEQ in D5W AND NSS 1,000 ML IV SCH ×5 (01:38→19:53)
[2018-10-14 03:44] LABS: BUN Creatinine Ratio 10.9 (10-20); Calcium 8.1 mg/dl (8.5-10.1); Creatinine Clr Calc Pharmacy 93.2 ml/min; Est GFR (African American) 99.1; Est GFR (Non-African American) 85.5; Potassium 4.4 mmol/L (3.5-5.1)
[2018-10-14 03:50] LABS: Basophils # (auto) 0.02 K/uL (0-0.2); Basophils % (auto) 0.1 %; Hematocrit (blood only) 37.8 % (42-52); Hemoglobin 14.3 g/dL (14.0-18.0); Immature Granulocytes # (auto) 0.17 K/uL (0.00-0.02); Immature Granulocytes % (auto) 1.2 %; Lymphocytes % (auto) 9.2 %; Mean Corpuscular Hgb Conc 37.8 g/dL (32-36); Mean Corpuscular Volume 82.5 fL (80-100); Mean Platelet Volume 9.4 fL (7.4-10.4); Monocytes # (auto) 2.04 K/uL (0.11-0.59); Monocytes % (auto) 14.4 %; Neutrophils # (auto) 10.59 K/uL (1.4-6.5); Neutrophils % (auto) 75.1 %; Platelet Count 225 K/uL (130-400); RDW Coefficient of Variation 12.4 % (11.5-14.5); RDW Standard Deviation 37.2 fL (36.4-46.3); Red Blood Count 4.58 M/uL (4.7-6.1); White Blood Count 14.12 K/uL (4.8-10.8)
[2018-10-14 03:54] LABS: Phosphorus 1.3 mg/dl (2.5-4.9)
[2018-10-14] MEDS ORDERED: POTASSIUM PHOS 3 MMOL/1 ML INFUSION IV STA ×3 (04:00→20:08)
[2018-10-14 06:21] LABS: Estimated Average Glucose 413 mg/dl
[2018-10-14 07:58] LABS: BUN Creatinine Ratio 10.1 (10-20); Calcium 8.3 mg/dl (8.5-10.1); Creatinine Clr Calc Pharmacy 101.8 ml/min; Est GFR (African American) 106.8; Est GFR (Non-African American) 92.2; Potassium 4.2 mmol/L (3.5-5.1)
[2018-10-14 07:59] LABS: Phosphorus 1.8 mg/dl (2.5-4.9)
[2018-10-14] MEDS ORDERED: ERGOCALCIFEROL 50,000 UNITS CAP PO SCH (08:00)
[2018-10-14] MEDS ORDERED: INSULIN GLARGINE SOLOSTAR 100 UNITS/ML 3 ML PEN SC ONE (09:35)
[2018-10-14] MEDS: CHOLECALCIFEROL 1,000 UNITS TAB PO SCH (09:53)
[2018-10-14] MEDS ORDERED: Nursing to Pharmacy Communication ONE (10:10)
[2018-10-14] MEDS: INSULIN ASPART 100 UNITS/ML 3 ML PEN SC SCH ×4 (10:29→20:44)
[2018-10-14 11:53] LABS: BUN Creatinine Ratio 11.5 (10-20); Calcium 8.4 mg/dl (8.5-10.1); Creatinine Clr Calc Pharmacy 113.1 ml/min; Est GFR (African American) 121.3; Est GFR (Non-African American) 104.7; Magnesium 1.9 mg/dl (1.8-2.4); Potassium 3.7 mmol/L (3.5-5.1)
[2018-10-14 11:56] LABS: Phosphorus 2.7 mg/dl (2.5-4.9)
--- NOTE | 2018-10-14 12:33 | Family Medicine Progress Note ---
Date of Service October 14, 2018 Assessment & Plan (1) DKA (diabetic ketoacidoses): 27 y/o M with no significant PMH presents with complaints of SOB and vomiting found to be in DKA DKA -D/C insulin gtt per protocol. Transitioned to SQ insulin now that AG closed - D5 + NSS + 40 meq KCl @ 250 now that BSG at goal. Decreased rate to 150 for tonight -BSG q1h. Goal 120-160 -cont monitor labs (BMP, Mg, Phos, pH VBG) q4h -diabetic education consult appreciated -A1C 16 -tachypnea likely 2/2 to resp compensation to acidemia QTc prolongation -516 in ED . 411 today Leukocytosis -low suspicion to infectious etiology -white count 2/2 demargination from vomiting. Will cont trend, downtrending -dc'd zosyn -will cont to monitor for s/s infection. Repeat CBC tomorrow FEN/GI: D5 + NSS + 40 meq KCl @ 250. DM Diet DVT Prophylaxis: Low Risk, Ambulation Full Code Dispo: Med Surg w/Tele Supervising Physician Co-Signing Physician Notes I personally examined the patient and verified all gonzáles points of history and exam, discussed case, and agree with decision making with Dr Sheppard. Feeling much better. Nausea gone. Still feels very weak, but better than before. Extensively educated on diabetes, concerns on outcomes to avoid in regards to microvascular ischemia ("high sugars clog arteries"). Answered all questions to the best my ability. New onset type 1 diabetes with DKA/profound metabolic acidosis�it appears that he has new onset type 1 diabetes, there does not appear to be any inciting infection as far as the DKA, more just the insulin deficiency of being a new onset type I. Was profoundly dry, now improving. Continue fluids, likely can start to reduce. Transition to subcu insulin Leukocytosis�no other signs or symptoms of infection obviously present, this is likely demargination from his vomiting, improving. Vomiting�likely from the metabolic derangements of his acidosis. Improved Severe metabolic acidosis�due to above, is improving with aggressive fluid management. Elevated d-dimer�nonspecific, appears to be phase reactant, see discussion in H&P, no clinical signs or symptoms consistent with venous thromboembolic disease. Elevated creatinine�likely due to his profound volume depletion. IV fluids have improved the situation DVT prophylaxis�ambulation Extensive education. Time in the room approximately 11:15 AM time out of the room approximately 12 PM. All questions answered to the best my ability. Subjective 27 y/o M found in bed this AM in NAD. Reports no acute overnight events. Notes N/V have subsided. Still feels somewhat fatigued, but this also improved. Tolerating PO intake. No issues voiding. No other acute concerns or complaints. Review of Systems Review of Systems: All systems reviewed & are unremarkable except as noted in HPI & below Physical Exam Constitutional: WD/WN, vitals as above Eyes: PERRL, conjunctivae normal, anicteric sclerae ENMT: dry MM Respiratory: Auscultation: lungs clear to auscultation bilaterally Cardiovascular: RRR, no murmur, no edema Gastrointestinal (Abdomen): normal bowel sounds, soft, nontender, no hepatosplenomegaly Skin: no rashes, warm and dry Psychiatric: A+Ox3, euthymic affect Results & Data Vital Signs (Past 12 Hours) Vital Signs Temp Pulse Resp BP Pulse Ox 10/14/18 07:13 36.7 C 100 H 16 118/81 99 10/14/18 04:40 37.0 C 105 H 21 115/73 100 Laboratory Results Laboratory Results - last 24 hr 10/13/18 10/13/18 10/13/18 15:01 15:01 15:11 WBC RBC Hgb Hct MCV MCH MCHC RDW Std Deviation RDW Coeff of Deana Plt Count MPV Immature Gran % (Auto) Neut % (Auto) Lymph % (Auto) Alfalfa % (Auto) Eos % (Auto) Baso % (Auto) Immature Gran # (Auto) Neut # (Auto) Lymph # (Auto) Alfalfa # (Auto) Eos # (Auto) Baso # (Auto) VBG pH Sodium Potassium Chloride Carbon Dioxide 4 L* Anion Gap BUN Creatinine Est Cr Clr Drug Dosing Est GFR ( Amer) Est GFR (Non-Af Amer) BUN/Creatinine Ratio Glucose POC Glucose Estimat Average Glucose 413 Hemoglobin A1c 16.0 H Lactate Calcium Phosphorus Magnesium Globulin 4.4 H 25-OH Vitamin D Total Urine Color Yellow Urine Appearance Clear Urine pH 5.0 Ur Specific [place] 1.027 Urine Protein 2+ H Urine Glucose (UA) 3+ H Urine Ketones 4+ H Urine Blood 1+ H Urine Nitrite Negative Urine Bilirubin Negative Urine Urobilinogen Negative Ur Leukocyte Esterase Negative Urine WBC (Auto) 1-5 Urine RBC (Auto) 0-4 U Hyaline Cast (Auto) 10-30 H U Epithel Cells (Auto) >30 H Urine Bacteria (Auto) Negative Granular Casts 1-5 H 10/13/18 10/13/18 10/13/18 16:05 17:10 18:10 WBC RBC Hgb Hct MCV MCH MCHC RDW Std Deviation RDW Coeff of Deana Plt Count MPV Immature Gran % (Auto) Neut % (Auto) Lymph % (Auto) Alfalfa % (Auto) Eos % (Auto) Baso % (Auto) Immature Gran # (Auto) Neut # (Auto) Lymph # (Auto) Alfalfa # (Auto) Eos # (Auto) Baso # (Auto) VBG pH Sodium Potassium Chloride Carbon Dioxide Anion Gap BUN Creatinine Est Cr Clr Drug Dosing Est GFR ( Amer) Est GFR (Non-Af Amer) BUN/Creatinine Ratio Glucose POC Glucose 388 H* 438 H* 371 H* Estimat Average Glucose Hemoglobin A1c Lactate Calcium Phosphorus Magnesium Globulin 25-OH Vitamin D Total Urine Color Urine Appearance Urine pH Ur Specific [place] Urine Protein Urine Glucose (UA) Urine Ketones Urine Blood Urine Nitrite Urine Bilirubin Urine Urobilinogen Ur Leukocyte Esterase Urine WBC (Auto) Urine RBC (Auto) U Hyaline Cast (Auto) U Epithel Cells (Auto) Urine Bacteria (Auto) Granular Casts 10/13/18 10/13/18 10/13/18 19:10 19:51 19:51 WBC RBC Hgb Hct MCV MCH MCHC RDW Std Deviation RDW Coeff of Deana Plt Count MPV Immature Gran % (Auto) Neut % (Auto) Lymph % (Auto) Alfalfa % (Auto) Eos % (Auto) Baso % (Auto) Immature Gran # (Auto) Neut # (Auto) Lymph # (Auto) Alfalfa # (Auto) Eos # (Auto) Baso # (Auto) VBG pH Sodium 140 Potassium 4.2 Chloride 112 H Carbon Dioxide 6 L* Anion Gap 23.0 H BUN 15 Creatinine 1.17 Est Cr Clr Drug Dosing 93.2 Est GFR ( Amer) 99.1 Est GFR (Non-Af Amer) 85.5 BUN/Creatinine Ratio 12.6 Glucose 230 H POC Glucose 253 H Estimat Average Glucose Hemoglobin A1c Lactate 2.2 H* Calcium 8.2 L Phosphorus 3.0 Magnesium 2.2 Globulin 25-OH Vitamin D Total Urine Color Urine Appearance Urine pH Ur Specific [place] Urine Protein Urine Glucose (UA) Urine Ketones Urine Blood Urine Nitrite Urine Bilirubin Urine Urobilinogen Ur Leukocyte Esterase Urine WBC (Auto) Urine RBC (Auto) U Hyaline Cast (Auto) U Epithel Cells (Auto) Urine Bacteria (Auto) Granular Casts 10/13/18 10/13/18 10/13/18 19:51 20:14 21:14 WBC RBC Hgb Hct MCV MCH MCHC RDW Std Deviation RDW Coeff of Deana Plt Count MPV Immature Gran % (Auto) Neut % (Auto) Lymph % (Auto) Alfalfa % (Auto) Eos % (Auto) Baso % (Auto) Immature Gran # (Auto) Neut # (Auto) Lymph # (Auto) Alfalfa # (Auto) Eos # (Auto) Baso # (Auto) VBG pH 7.01 L Sodium Potassium Chloride Carbon Dioxide Anion Gap BUN Creatinine Est Cr Clr Drug Dosing Est GFR ( Amer) Est GFR (Non-Af Amer) BUN/Creatinine Ratio Glucose POC Glucose 195 H 159 H Estimat Average Glucose Hemoglobin A1c Lactate Calcium Phosphorus Magnesium Globulin 25-OH Vitamin D Total Urine Color Urine Appearance Urine pH Ur Specific [place] Urine Protein Urine Glucose (UA) Urine Ketones Urine Blood Urine Nitrite Urine Bilirubin Urine Urobilinogen Ur Leukocyte Esterase Urine WBC (Auto) Urine RBC (Auto) U Hyaline Cast (Auto) U Epithel Cells (Auto) Urine Bacteria (Auto) Granular Casts 10/13/18 10/13/18 10/13/18 22:14 23:16 23:16 WBC RBC Hgb Hct MCV MCH MCHC RDW Std Deviation RDW Coeff of Deana Plt Count MPV Immature Gran % (Auto) Neut % (Auto) Lymph % (Auto) Alfalfa % (Auto) Eos % (Auto) Baso % (Auto) Immature Gran # (Auto) Neut # (Auto) Lymph # (Auto) Alfalfa # (Auto) Eos # (Auto) Baso # (Auto) VBG pH 7.13 L Sodium 140 Potassium 4.6 Chloride 113 H Carbon Dioxide 9 L* Anion Gap 18.0 H BUN 14 Creatinine 1.16 Est Cr Clr Drug Dosing 94.0 Est GFR ( Amer) 100.2 Est GFR (Non-Af Amer) 86.4 BUN/Creatinine Ratio 11.9 Glucose 171 H POC Glucose 137 H Estimat Average Glucose Hemoglobin A1c Lactate Calcium 8.5 Phosphorus 1.2 L* D Magnesium 2.0 Globulin 25-OH Vitamin D Total Urine Color Urine Appearance Urine pH Ur Specific [place] Urine Protein Urine Glucose (UA) Urine Ketones Urine Blood Urine Nitrite Urine Bilirubin Urine Urobilinogen Ur Leukocyte Esterase Urine WBC (Auto) Urine RBC (Auto) U Hyaline Cast (Auto) U Epithel Cells (Auto) Urine Bacteria (Auto) Granular Casts 10/13/18 10/14/18 10/14/18 23:19 00:15 00:25 WBC RBC Hgb Hct MCV MCH MCHC RDW Std Deviation RDW Coeff of Deana Plt Count MPV Immature Gran % (Auto) Neut % (Auto) Lymph % (Auto) Alfalfa % (Auto) Eos % (Auto) Baso % (Auto) Immature Gran # (Auto) Neut # (Auto) Lymph # (Auto) Alfalfa # (Auto) Eos # (Auto) Baso # (Auto) VBG pH Sodium Potassium Chloride Carbon Dioxide Anion Gap BUN Creatinine Est Cr Clr Drug Dosing Est GFR ( Amer) Est GFR (Non-Af Amer) BUN/Creatinine Ratio Glucose POC Glucose 158 H 175 H Estimat Average Glucose Hemoglobin A1c Lactate Calcium Phosphorus Magnesium Globulin 25-OH Vitamin D Total Urine Color Yellow Urine Appearance Cloudy A Urine pH 5.0 Ur Specific [place] 1.021 Urine Protein 1+ H Urine Glucose (UA) 3+ H Urine Ketones 4+ H Urine Blood 1+ H Urine Nitrite Negative Urine Bilirubin Negative Urine Urobilinogen Negative Ur Leukocyte Esterase Negative Urine WBC (Auto) 1-5 Urine RBC (Auto) 0-4 U Hyaline Cast (Auto) 1-5 U Epithel Cells (Auto) >30 H Urine Bacteria (Auto) Negative Granular Casts 10-20 H 10/14/18 10/14/18 10/14/18 01:15 03:10 03:10 WBC 14.12 H RBC 4.58 L Hgb 14.3 D Hct 37.8 L MCV 82.5 D MCH 31.2 MCHC 37.8 H RDW Std Deviation 37.2 RDW Coeff of Deana 12.4 Plt Count 225 MPV 9.4 Immature Gran % (Auto) 1.2 Neut % (Auto) 75.1 Lymph % (Auto) 9.2 Alfalfa % (Auto) 14.4 Eos % (Auto) 0.0 Baso % (Auto) 0.1 Immature Gran # (Auto) 0.17 H Neut # (Auto) 10.59 H Lymph # (Auto) 1.30 Alfalfa # (Auto) 2.04 H Eos # (Auto) 0.00 Baso # (Auto) 0.02 VBG pH Sodium 138 Potassium 4.4 Chloride 116 H Carbon Dioxide 12 L Anion Gap 10.0 BUN 13 Creatinine 1.17 Est Cr Clr Drug Dosing 93.2 Est GFR ( Amer) 99.1 Est GFR (Non-Af Amer) 85.5 BUN/Creatinine Ratio 10.9 Glucose 246 H POC Glucose 206 H Estimat Average Glucose Hemoglobin A1c Lactate Calcium 8.1 L Phosphorus 1.3 L* Magnesium 2.0 Globulin 25-OH Vitamin D Total Urine Color Urine Appearance Urine pH Ur Specific [place] Urine Protein Urine Glucose (UA) Urine Ketones Urine Blood Urine Nitrite Urine Bilirubin Urine Urobilinogen Ur Leukocyte Esterase Urine WBC (Auto) Urine RBC (Auto) U Hyaline Cast (Auto) U Epithel Cells (Auto) Urine Bacteria (Auto) Granular Casts 10/14/18 10/14/18 10/14/18 03:10 03:10 03:21 WBC RBC Hgb Hct MCV MCH MCHC RDW Std Deviation RDW Coeff of Deana Plt Count MPV Immature Gran % (Auto) Neut % (Auto) Lymph % (Auto) Alfalfa % (Auto) Eos % (Auto) Baso % (Auto) Immature Gran # (Auto) Neut # (Auto) Lymph # (Auto) Alfalfa # (Auto) Eos # (Auto) Baso # (Auto) VBG pH 7.20 L Sodium Potassium Chloride Carbon Dioxide Anion Gap BUN Creatinine Est Cr Clr Drug Dosing Est GFR ( Amer) Est GFR (Non-Af Amer) BUN/Creatinine Ratio Glucose POC Glucose 233 H Estimat Average Glucose Hemoglobin A1c Lactate Calcium Phosphorus Magnesium Globulin 25-OH Vitamin D Total 12.8 L Urine Color Urine Appearance Urine pH Ur Specific [place] Urine Protein Urine Glucose (UA) Urine Ketones Urine Blood Urine Nitrite Urine Bilirubin Urine Urobilinogen Ur Leukocyte Esterase Urine WBC (Auto) Urine RBC (Auto) U Hyaline Cast (Auto) U Epithel Cells (Auto) Urine Bacteria (Auto) Granular Casts 10/14/18 10/14/18 10/14/18 05:22 06:57 07:09 WBC RBC Hgb Hct MCV MCH MCHC RDW Std Deviation RDW Coeff of Deana Plt Count MPV Immature Gran % (Auto) Neut % (Auto) Lymph % (Auto) Alfalfa % (Auto) Eos % (Auto) Baso % (Auto) Immature Gran # (Auto) Neut # (Auto) Lymph # (Auto) Alfalfa # (Auto) Eos # (Auto) Baso # (Auto) VBG pH 7.23 L Sodium 142 Potassium 4.2 Chloride 117 H Carbon Dioxide 14 L Anion Gap 11.0 BUN 11 Creatinine 1.10 Est Cr Clr Drug Dosing 101.8 Est GFR ( Amer) 106.8 Est GFR (Non-Af Amer) 92.2 BUN/Creatinine Ratio 10.1 Glucose 257 H POC Glucose 223 H Estimat Average Glucose Hemoglobin A1c Lactate Calcium 8.3 L Phosphorus 1.8 L Magnesium 2.0 Globulin 25-OH Vitamin D Total Urine Color Urine Appearance Urine pH Ur Specific [place] Urine Protein Urine Glucose (UA) Urine Ketones Urine Blood Urine Nitrite Urine Bilirubin Urine Urobilinogen Ur Leukocyte Esterase Urine WBC (Auto) Urine RBC (Auto) U Hyaline Cast (Auto) U Epithel Cells (Auto) Urine Bacteria (Auto) Granular Casts 10/14/18 10/14/18 10/14/18 07:18 09:47 10:44 WBC RBC Hgb Hct MCV MCH MCHC RDW Std Deviation RDW Coeff of Deana Plt Count MPV Immature Gran % (Auto) Neut % (Auto) Lymph % (Auto) Alfalfa % (Auto) Eos % (Auto) Baso % (Auto) Immature Gran # (Auto) Neut # (Auto) Lymph # (Auto) Alfalfa # (Auto) Eos # (Auto) Baso # (Auto) VBG pH Sodium Potassium Chloride Carbon Dioxide Anion Gap BUN Creatinine Est Cr Clr Drug Dosing Est GFR ( Amer) Est GFR (Non-Af Amer) BUN/Creatinine Ratio Glucose POC Glucose 273 H 279 H 197 H Estimat Average Glucose Hemoglobin A1c Lactate Calcium Phosphorus Magnesium Globulin 25-OH Vitamin D Total Urine Color Urine Appearance Urine pH Ur Specific [place] Urine Protein Urine Glucose (UA) Urine Ketones Urine Blood Urine Nitrite Urine Bilirubin Urine Urobilinogen Ur Leukocyte Esterase Urine WBC (Auto) Urine RBC (Auto) U Hyaline Cast (Auto) U Epithel Cells (Auto) Urine Bacteria (Auto) Granular Casts 10/14/18 10/14/18 10/14/18 11:10 11:10 11:46 WBC RBC Hgb Hct MCV MCH MCHC RDW Std Deviation RDW Coeff of Deana Plt Count MPV Immature Gran % (Auto) Neut % (Auto) Lymph % (Auto) Alfalfa % (Auto) Eos % (Auto) Baso % (Auto) Immature Gran # (Auto) Neut # (Auto) Lymph # (Auto) Alfalfa # (Auto) Eos # (Auto) Baso # (Auto) VBG pH 7.26 L Sodium 139 Potassium 3.7 Chloride 115 H Carbon Dioxide 15 L Anion Gap 9.0 BUN 11 Creatinine 0.99 Est Cr Clr Drug Dosing 113.1 Est GFR ( Amer) 121.3 Est GFR (Non-Af Amer) 104.7 BUN/Creatinine Ratio 11.5 Glucose 200 H POC Glucose 183 H Estimat Average Glucose Hemoglobin A1c Lactate Calcium 8.4 L Phosphorus 2.7 Magnesium 1.9 Globulin 25-OH Vitamin D Total Urine Color Urine Appearance Urine pH Ur Specific [place] Urine Protein Urine Glucose (UA) Urine Ketones Urine Blood Urine Nitrite Urine Bilirubin Urine Urobilinogen Ur Leukocyte Esterase Urine WBC (Auto) Urine RBC (Auto) U Hyaline Cast (Auto) U Epithel Cells (Auto) Urine Bacteria (Auto) Granular Casts 10/14/18 10/14/18 10/14/18 12:44 14:46 15:14 WBC RBC Hgb Hct MCV MCH MCHC RDW Std Deviation RDW Coeff of Deaan Plt Count MPV Immature Gran % (Auto) Neut % (Auto) Lymph % (Auto) Alfalfa % (Auto) Eos % (Auto) Baso % (Auto) Immature Gran # (Auto) Neut # (Auto) Lymph # (Auto) Alfalfa # (Auto) Eos # (Auto) Baso # (Auto) VBG pH Sodium 139 Potassium 3.5 Chloride 116 H Carbon Dioxide 16 L Anion Gap 7.0 BUN 11 Creatinine 0.98 Est Cr Clr Drug Dosing 114.2 Est GFR ( Amer) 122.8 Est GFR (Non-Af Amer) 106.0 BUN/Creatinine Ratio 11.6 Glucose 265 H POC Glucose 172 H 286 H Estimat Average Glucose Hemoglobin A1c Lactate Calcium 8.4 L Phosphorus 1.5 L* D Magnesium 1.9 Globulin 25-OH Vitamin D Total Urine Color Urine Appearance Urine pH Ur Specific [place] Urine Protein Urine Glucose (UA) Urine Ketones Urine Blood Urine Nitrite Urine Bilirubin Urine Urobilinogen Ur Leukocyte Esterase Urine WBC (Auto) Urine RBC (Auto) U Hyaline Cast (Auto) U Epithel Cells (Auto) Urine Bacteria (Auto) Granular Casts 10/14/18 10/14/18 15:14 16:20 WBC RBC Hgb Hct MCV MCH MCHC RDW Std Deviation RDW Coeff of Deana Plt Count MPV Immature Gran % (Auto) Neut % (Auto) Lymph % (Auto) Alfalfa % (Auto) Eos % (Auto) Baso % (Auto) Immature Gran # (Auto) Neut # (Auto) Lymph # (Auto) Alfalfa # (Auto) Eos # (Auto) Baso # (Auto) VBG pH 7.31 L Sodium Potassium Chloride Carbon Dioxide Anion Gap BUN Creatinine Est Cr Clr Drug Dosing Est GFR ( Amer) Est GFR (Non-Af Amer) BUN/Creatinine Ratio Glucose POC Glucose 208 H Estimat Average Glucose Hemoglobin A1c Lactate Calcium Phosphorus Magnesium Globulin 25-OH Vitamin D Total Urine Color Urine Appearance Urine pH Ur Specific [place] Urine Protein Urine Glucose (UA) Urine Ketones Urine Blood Urine Nitrite Urine Bilirubin Urine Urobilinogen Ur Leukocyte Esterase Urine WBC (Auto) Urine RBC (Auto) U Hyaline Cast (Auto) U Epithel Cells (Auto) Urine Bacteria (Auto) Granular Casts Medications Administered Current Inpatient Medications Acetaminophen (Tylenol) 650 mg PO Q4H PRN PRN Reason: Pain or Fever Stop: 11/12/18 19:10 Al Hydrox/Mg Hydrox/Simethicone (Maalox) 15 ml PO Q4H PRN PRN Reason: Dyspepsia Stop: 11/12/18 19:10 Dextrose (Dextrose 50%) 25 - 50 ml IV UD PRN; Protocol PRN Reason: Hypoglycemia Protocol Stop: 11/12/18 19:29 Ergocalciferol (Vitamin D2) 50,000 units PO Q7D@0800 [facility] Stop: 11/13/18 07:59 Last Admin: 10/14/18 09:53 Dose: 50,000 units Documented by: Glucagon (Glucagen) 1 mg IM UD PRN; Protocol PRN Reason: Hypoglycemia Protocol Stop: 11/12/18 19:29 Glucose (Glucose 40%) 15 - 30 gm PO UD PRN; Protocol PRN Reason: Hypoglycemia Protocol Stop: 11/12/18 19:29 Glucose (Dex4 Glucose) 4 - 8 tabs PO UD PRN; Protocol PRN Reason: Hypoglycemia Protocol Stop: 11/12/18 19:29 Potassium Chloride 40 meq/ (Dextrose/Sodium Chloride) 1,020 mls @ 250 mls/hr IV .Q4H5M [facility] Stop: 11/12/18 20:29 Last Admin: 10/14/18 16:11 Dose: 250 mls/hr Documented by: Insulin Aspart (Novolog Flexpen) 0 units SC ACHS [facility] Stop: 11/13/18 11:29 Last Admin: 10/14/18 16:58 Dose: 11 units Documented by: Insulin Glargine (Lantus Solostar Pen) 20 units SC BID [facility] Stop: 11/14/18 08:59 Magnesium Hydroxide (Milk Of Magnesia) 30 ml PO Q12H PRN PRN Reason: Constipation Stop: 11/12/18 19:10 Miscellaneous (Carbohydrates For Hypoglycemia) 15 - 30 gm PO UD PRN PRN Reason: Hypoglycemia Treatment Stop: 11/12/18 19:29 Ondansetron HCl (Zofran) 4 mg IV Q6H PRN PRN Reason: Nausea Stop: 11/12/18 19:10 Last Admin: 10/13/18 22:29 Dose: 4 mg Documented by: Polyethylene Glycol (Miralax Powder Packet) 17 gm PO DAILY PRN PRN Reason: Constipation Stop: 11/12/18 19:10 Vitamin D (Vitamin D3) 2,000 units PO QAM [facility] Stop: 11/13/18 08:59 Last Admin: 10/14/18 09:53 Dose: 2,000 units Documented by: Resident Activity Tracking Resident Involvement: Resident Care Provided Care Provided: Adult Hospital Medicine
[2018-10-14] MEDS ORDERED: DC IV INSULIN INFUSION 1 EA DEVI ONE (15:30)
[2018-10-14 15:42] LABS: BUN Creatinine Ratio 11.6 (10-20); Calcium 8.4 mg/dl (8.5-10.1); Creatinine Clr Calc Pharmacy 114.2 ml/min; Est GFR (African American) 122.8; Magnesium 1.9 mg/dl (1.8-2.4); Potassium 3.5 mmol/L (3.5-5.1)
[2018-10-14 16:02] LABS: Phosphorus 1.5 mg/dl (2.5-4.9)
[2018-10-15] MEDS: POTASSIUM CHLORIDE 40 MEQ in D5W AND NSS 1,000 ML IV SCH ×2 (03:07→11:20)
[2018-10-15 06:24] LABS: Alanine Aminotransferase 14 U/L (12-78); Albumin Level 2.4 gm/dl (3.4-5.0); Aspartate Aminotransferase 11 U/L (15-37); BUN Creatinine Ratio 12.4 (10-20); Blood Urea Nitrogen 9 mg/dl (7-18); Calcium 7.7 mg/dl (8.5-10.1); Carbon Dioxide 21 mmol/L (21-32); Chloride 118 mmol/L (98-107); Creatinine Clr Calc Pharmacy 159.9 ml/min; Est GFR (African American) > 150.0; Est GFR (Non-African American) 130.2; Glucose 232 mg/dl (70-99); Potassium 3.5 mmol/L (3.5-5.1); Sodium 144 mmol/L (136-145)
[2018-10-15 06:25] LABS: Basophils # (auto) 0.01 K/uL (0-0.2); Basophils % (auto) 0.2 %; Eosinophils # (auto) 0.03 K/uL (0-0.5); Eosinophils % (auto) 0.6 %; Hematocrit (blood only) 31.5 % (42-52); Hemoglobin 11.4 g/dL (14.0-18.0); Immature Granulocytes # (auto) 0.03 K/uL (0.00-0.02); Immature Granulocytes % (auto) 0.6 %; Lymphocytes # (auto) 1.96 K/uL (1.2-3.4); Mean Corpuscular Hgb Conc 36.2 g/dL (32-36); Mean Corpuscular Volume 83.3 fL (80-100); Mean Platelet Volume 9.4 fL (7.4-10.4); Monocytes # (auto) 0.68 K/uL (0.11-0.59); Monocytes % (auto) 12.5 %; Neutrophils # (auto) 2.73 K/uL (1.4-6.5); Neutrophils % (auto) 50.1 %; Platelet Count 168 K/uL (130-400); RDW Coefficient of Variation 12.9 % (11.5-14.5); RDW Standard Deviation 39.2 fL (36.4-46.3); Red Blood Count 3.78 M/uL (4.7-6.1); White Blood Count 5.44 K/uL (4.8-10.8)
[2018-10-15 06:29] LABS: Alkaline Phosphatase 80 U/L (45-117); Bilirubin,Total 0.4 mg/dl (0.2-1); Chol HDL Ratio 3; Cholesterol 121 mg/dl (0-200); Globulin 2.5 gm/dl (2.5-4.0); HDL Cholesterol 40 mg/dl; LDL Cholesterol Calculated 62 mg/dl; Total Protein 4.9 gm/dl (6.4-8.2); Triglycerides 94 mg/dl (0-150); VLDL Cholesterol 19 mg/dl
[2018-10-15] MEDS ORDERED: INSULIN GLARGINE SOLOSTAR 100 UNITS/ML 3 ML PEN SC SCH ×2 (08:00→09:00)
[2018-10-15] MEDS: CHOLECALCIFEROL 1,000 UNITS TAB PO SCH (08:26)
[2018-10-15] MEDS: INSULIN ASPART 100 UNITS/ML 3 ML PEN SC SCH ×2 (08:27→12:07)
--- NOTE | 2018-10-15 13:16 | Discharge Summary ---
Date of Service October 15, 2018 Admission HPI Per Admitting Provider 27 y/o with no significant PMH presents to [facility] with complaints of SOB. States that SOB and vomiting started last night. Attributed it to battling cold-like symptoms for about one week prior (since last experiencing cough and congestion). However, breathing difficulties and vomiting (~15 episodes) continued into AM, and pt went to who then referred pt to ED. States has never had any previous such occurrence. Denies polyuria, polydipsia, polyphagia, abd pain, CP, palpitations, GRANT, dizziness, numbness, tingling, urinary symptoms, hematemesis, F/N/V/D at present. Admits to feeling fatigued and increased RR. Also admits 5 lb wt loss since last week. In the ER, CXR normal, EKG showed sinus tachycardia. Significant labs: WBC 20.93, AG 30, Glu 432, ABG pH 6.88, Beta-Hydroxybutyric Acid 112, LA 3.5, D-d carmen 640, Mg 2.6. UA: 2+ Protein, 3+ Glucose, 4+ Ketones, 1+ Blood Given 2L IVF, Insulin gtt, IV Zosyn. Fam Hx: DM in grandfather and maternal/paternal uncles Surg Hx: None Social: Denies tobacco, alcohol, or other drug use Principal Diagnosis dka Discharge Exam Constitutional WD/WN, vitals as above Eyes PERRL, conjunctivae normal, anicteric sclerae ENMT external ear and nose normal, oropharynx normal Respiratory normal respiratory effort, lungs clear to auscultation Cardiovascular RRR, no murmur, no edema Gastrointestinal (Abdomen) normal bowel sounds, soft, nontender, no hepatosplenomegaly Skin no rashes, warm and dry Psychiatric A+Ox3, euthymic affect Discharge Data Allergies Allergy/AdvReac Type Severity Reaction Status Date / Time No Known Allergies Allergy Verified 10/13/18 15:24 Consultations 10/13/18 15:45 ED Decision to Admit Stat Hospital Course (1) DKA (diabetic ketoacidoses): 27 y/o M with no significant PMH presented with complaints of SOB and vomiting and was found to be in DKA. The following was the medical management during stay here: DKA -It appeared that pt had new onset type 1 diabetes that was not caused by any sort of inciting infection that may have put him into DKA. Pt's tachypnea was likely 2/2 to respiratory compensation to acidemia. Likewise, his vomiting was likely from metabolic derangements of his acidosis. Pt was started on insulin gtt per protocol along with aggressive IVF hydration. Estimate that pt was at least 5 L volume depleted on admission. Next day, pt was transitioned to SQ insulin once the AG closed and BSG's were in goal range. An A1C measured here was 16. On d/c, extensive diabetic education was provided to pt. Pt will be go ing home on Lantus 40 units daily and Novolog 13 units AC. Leukocytosis -There was low suspicion for infectious etiology as there were no other obvious signs or symptoms of infection, thus was likely demargination from pt's vomiting. We continued to trend this and WBC's downtrended daily. Pt was initially given zosyn in the ER, but this was dc'd on admission. Elevated Cr -This was likely 2/2 to pt's profound volume depletion as above. We cont on IVF. QTc prolongation -Pt's QTc was 516 in ED. This was likely 2/2 electrolyte flux (potassium, magnesium) from vomiting that brought pt into the hospital initially. On repeat the next day, QTc was 411. Elevated D-Dimer -This was likely just an acute phase reactant. No further imaging or workup was done. There was little concern for a DVT. Pt's tachycardia was likely 2/2 dehydration, and his tachypnea was 2/2 acidosis. Pt was sating well on RA throughout stay here. Thus, a CT to look for PE was not worth the impact it would have on his kidneys with the contrast. V/Q also would have taken hours to get the nuclear tracer. At time of d/c, pt had no other acute concerns or complaints. Total Time Total Time Spent Total Time Spent (In Minutes): >30 min Discharge Plan Discharge Items Patient Disposition: Home - Self-Care Reason For Visit: DKA Discharge Diagnosis: DKA Condition: Fair Discharge Goals: Improve disease control Activity: Per 'Additional Instructions' section Non-emergency contact: Primary Care Provider Call non-emergency contact if: you have any medication questions and your symptoms worsen Follow-up/Referrals: Prudence Dumont MD [Primary Care Provider] - 10/28/18 12:50 pm Diet: Carb Consistent or DM2 Addtl Provider Instructions: Diabetes Type 1 diabetes -type 1 diabetes is where your immune system �goes rogue� and attacks the pancreas and destroys the cells that make insulin -insulin is a hormone that gets sugar out of your bloodstream and into your muscles -once enough of your insulin-making beta cells were destroyed, you were no longer able to move sugar from your bloodstream into your muscles (and a metabolic disarray known as DKA happened � see below) -moving forward, the main problem with diabetes is that �high sugars clog arteries� � and the longer your sugar runs high/the higher it runs, the more it progressively clogs up arteries that you can�t get back -the main �endpoints� we want you to avoid with this are heart attacks, strokes, kidney failure (dialysis), blindness (from small arteries in the eyes getting clogged) or neuropathy (burning numbness in the feet from small arteries that fuel nerves getting clogged) -as we discussed, these endpoints are QUITE AVOIDABLE as long as we teach you how to take care of your sugar properly, and you put in the work to follow through on doing so -in general, truly normal fasting sugars would be about 80-100, and truly normal sugars 2 hours after eating would be about 80-120. For the purposes of avoiding clogging arteries, an easy to remember �keep it between 100-150� will suffice well. (if you�re a perfectionist, chasing a fasting sugar of about 80-120, and a 2 hour after you eat of 80-140 is generally considered as good as is reasonably possible for a diabetic) -Dr Sheppard will also be following a lab test called a Hemoglobin A1c (or A1c) this is a marker of sugar control for about the last 3 months � an A1c is a marker of how sugar-covered your red blood cells are, because red cells live for about 90 days, an A1c gives a decent glimpse backward of how overall control has been. In general, for the purposes of avoiding �high sugars clog arteries� an A1c of less than 7.0 keep people out of trouble. For physiologic purposes, less than about 5.5 is totally normal (but if we have people treating their sugars to ranges that low, they usually fall into a lot of trouble with hypoglycemic episodes without a whole lot of vascular benefit to show for their troubles). -your current A1c is 16, but it is quite common for someone to have surprisingly high A1c�s at the time of diagnosis � the expectation is that possibly as soon as January, your A1c should be in the mid to low 7�s or better. Insulins -because your pancreas does not make insulin to get sugar out of your blood stream and into your muscles, we have to use insulin (for now injections, hopefully as you get better at this we can work to transition you to an insulin pump) to mimic what a normal pancreas would do. -normal pancreatic physiology will make a small amount of insulin when you�re in a prolonged fasting state (to get sugar that�s still floating around and sugar that your liver is dumping into bloodstream into your muscles). When you eat something, your pancreas will make a surge of insulin to get the carbohydrates that you ate out of your bloodstream and into your muscles � and that surge of insulin will match up with the carbs that you ate (ie low carb foods take less insulin to process than high carb foods). -for the purposes of how much insulin it takes, realize that for most people, any simple carb is going to affect your sugar levels pretty similarly � ie pastas, breads, crusts, potatoes are going to cause a fairly similar spike in sugar to sweets/candies/baked goods � and therefore will end up taking a fairly similar amount of insulin to get the job done. -long acting insulin: we�re prescribing lantus, because that�s what is usually the one covered by insurance, but if it�s too expensive, tujeo, basaglar, and levemir will all basically be more or less the same -the lantus starts working about 2 hours after you inject it, never reaches a peak in activity, and then slowly wears off around hours 18-24 -right now we�re going to have you start at 40 units of lantus in the morning -you�ll mostly be able to �grade the work� of the lantus dosing by your fasting sugars in the morning (ie if you�re having hypoglycemia in a prolonged fasting state (or when exercising) it�s likely that Dr Sheppard will have to guide you on decreasing the lantus; if you�re running high in a fasting state (sugars are always disproportionately high when you wake up) then he�ll have to guide you on increasing the lantus -with the question of exercising, if you feel a low sugar frequently when exercising (and it wouldn�t be a bad idea to randomly spot check sugar levels at the end of a workout) � it�s possible that Dr Sheppard may have a lower dose of lantus for you on �exercise days� compared to �regular days� Short acting insulin: novolog, Humalog, and apidra are all more or less the same thing, again we�re prescribing novolog due to probability of it getting covered the best, but if you don�t have coverage for that, ask if they would cover Humalog or apidra better and we can simply change the prescription -the novolog starts working about 15-30 minutes after you inject it, reaches a peak in activity around 90 minutes, and then is totally gone in about 3-4 hours -there are two ways to gauge your novolog dosing � both are geared to �match up� the dose of the insulin with the carbs that you ate: -carb counting: this entails weighing and measuring foods to determine how many grams of carbohydrates you�re going to eat, then giving yourself one unit of insulin for every 7 grams of carbs you�re eating -�soft carb counting�: this entails starting with a �center point� of about 13 units of insulin per meal (based on the total amount of insulin it appears you�ll need on the day) and then learning to vary your insulin dosing based on the �eyeball� amount of carbs you�re eating, made more accurate by experience as you learn how your body does with different types of foods. -either method can (and does) work well for people, and there�s nothing wrong with even doing both based on different circumstances. The most critical part of either method is �grading your work� � ie making sure that you check sugars 2 hours after eating to ensure that you�ve given yourself the right amount of insulin to cover the carbs that you ate -a good goal for 2 hours after eating is about 100-150. -if you see sugars higher than 150 in that 5-etjt-ovklp-eating window, then you know that the next time you eat that food (or something similar) then you�ll need to take a little more insulin -if you see sugars that are low in that 3-wlfn-ubjrb-eating window, then you�ll know that the next time you eat that (or something similar) you�ll take less insulin -this will require a bit of an initial learning curve � for most people maybe a few weeks to a month to really get comfortable with things, and to learn from enough different types of foods to see how much insulin you�re needing -to reiterate, this has to be done based on learning from the 2 hour after eating blood sugar readings, doing it �by feel� never works (usually people run kind of high and then run into vascular problems down the road because you generally won�t feel sugars in the 200-300�s but they�ll be doing damage anyway) -if you have a low sugar, it generally will feel like feeling weak/shaky/sweaty, then possibly starting to feel mentally out of it. These can usually be corrected with about 15g of carbs (or to make it easy, somewhere around 4oz of orange juice) � lows most often will come ~a few hours after eating if you�ve �overshot� the short acting insulin compared to the carbs you ate -if you see a high sugar, don�t try to correct for it in the moment, as that will create overlapping arcs of different doses of insulin peaking and wearing off, raising the risk of a surprise low -- just learn from it so that the next time you eat something similar, you remember to take more short acting insulins -touch base with Dr Sheppard weekly � either face to face in the office, or indirectly over the phone/through the patient portal � so that he can give feedback and guidance on sugar levels/insulin dosing The whole goal of getting good at the above will be to pave the way to an insulin pump � the pump doesn�t do the thinking for you, so a pump without good skills to use it can be a dangerous device, but once you�re good at managing sugars, the pump makes things way more convenient (by being able to have a basal rate instead of lantus, and punching a bolus into the pump rather than a shot of novolog, and being able to adjust different basal rates for rest/exercise/stress/etc) Likewise, things like continuous glucose monitors can be a nice tool to allow you to follow sugars more closely without torturing your fingers too much. DKA (diabetic ketoacidosis) -this is the process that led to you getting admitted -this typically only happens when your diabetes has just started (and you had no idea what was going on) or when diabetes stop taking insulins (easy enough � don�t do that!) (and rarely when a type 1 diabetic gets really sick � occasionally that will lead to a stress-induced spike in sugar that can cascade into DKA � this is the least likely; as you and Dr Sheppard work together, if you see that your sugars do rise when you gets sick in a significant way, he can help create �sick day� dosing of insulin (frequently adding 25-50% to your typical dosing to keep up with the metabolic stress). -once sugars are fairly high, they start to act by osmosis to pull water from yo ur cells into your bloodstream (technically this probably starts to happen when your sugars are even above 200, but usually not in a significant way until people are in the high 300�s or higher) -the water from your cells �tricks� your kidneys into thinking that you�re well hydrated, and therefore they pee the �extra� water off � making you more dehydrated -this extra dehydration then causes physiologic stress that makes your adrenal glands crank out excess cortisol (a stress hormone, which by unfortunate coincidence for a diabetic, increases sugar levels). -this then leads to an upcycling cascade of high sugar ? dehydration ? more cortisol ? higher sugar ? and so on. -fortunately when people take care of themselves aggressively, this rarely happens, if ever Vitamin D -diabetes and low vitamin D go [id number]. -your vitamin D level was quite low at 12.8 (normal is a little bit debatable, but it�s at least 30, maybe 40) -we�ll replace the vitamin D aggressively right now �with 50,000 units of D2 once a week for about 3 months, and at the same time, 2000 units of D3 (over the counter) daily -Dr Sheppard will check levels in about 3 months to ensure that this replacement has gotten you to normal ranges -then once we have levels up to normal, Dr Sheppard will check them sometime in the of winter to ensure that you show good year-round levels -vitamin D is mostly made through our skin through sunlight � about 15 minutes of skin exposure causes you to make about 10,000 units of D, then it plateaus and you don�t really make any more -because excess sun exposure also raises risk of skin cancer, get about the 15 minutes without sunblock, but then wear sunblock/etc after that so as to balance the risks of low D and excess sun exposure -[place] get [place] the sun gets too low in the [place] to get the right UV to make vitamin D from about through the beginning of July (hence why checking in the of winter is a good referendum on year round stores) Prescriptions: New ergocalciferol (vitamin D2) [Vitamin D2] 50,000 unit Capsule 50,000 unit PO Q7D@0800 Qty: 12 RF: 0 Novolog Flexpen U-100 Insulin 100 unit/mL (3 mL) Insulin Pen 13 unit SC AC Qty: 3 RF: 4 cholecalciferol (vitamin D3) [Vitamin D3] 1,000 unit Tablet 2,000 unit PO QAM Qty: 30 RF: 0 Lantus Solostar U-100 Insulin 100 unit/mL (3 mL) Insulin Pen 40 unit SC DAILY Qty: 3 RF: 4 No Action No Known Home Medications RF: 0 Stand-Alone Forms: My [facility] [employer]/Other Patient Handouts: Blood Sugar Check, Diabetes Type 1, Diabetic Ketoacidosis Discharge Orders: Discharge Order (Routine); Ordered 10/15/18 Ordered By: Remy Sheppard Admission Data Admit Date/Time: 10/13/18 17:15 Attending Provider: Edwin Wallis Admit Provider: Remy Sheppard Primary Care Provider: Prudence Dumont Other Providers: Saskia Gray Service: Telemetry Other Interventions: Discharge Summary Assessment (RN) Last Done: 10/15/18 15:05 DC Date/Time DO NOT enter until pt leaves facility: 10/15/18 16:00 Supervising Physician Co-Signing Physician Notes I personally examined the patient and verified all gonzáles points of history and exam, discussed case, and agree with decision making with Dr Sheppard. Feeling much better. Extensive discussions and education about diabetes, the importance of management, end point complications that we want to avoid, insulin management, glucose monitoring, etc. All questions answered to the best my ability. New onset type 1 diabetes with DKA/profound metabolic acidosis�it appears that he has new onset type 1 diabetes, there does not appear to be any inciting infection as far as the DKA, more just the insulin deficiency of being a new onset type I. Was profoundly dry on admission, now appears to be improved, and off of IV fluids. Transitioned to subcutaneous insulin, educated extensively on this. See discharge instructions. Leukocytosis�no other signs or symptoms of infection obviously present, this was likely demargination from his vomiting, improved. Vomiting�likely from the metabolic derangements of his acidosis. Improved Severe metabolic acidosis�due to above, improved with aggressive fluid management. Elevated d-dimer�nonspecific, appears to be phase reactant, see discussion in H&P, no clinical signs or symptoms consistent with venous thromboembolic disease. Clinically he looks quite well. Elevated creatinine�likely due to his profound volume depletion. Improved with IV fluids DVT prophylaxis�ambulation Resident Activity Tracking Resident Involvement: Resident Care Provided Care Provided: Adult Hospital Medicine
== END 2018-10-15 16:00 | disposition home or self-care (01) | DRG 639 ==
LOC: ED 14:39 → 2E 17:15